=== PATIENT | female | born 1970 ===

== ENCOUNTER 2018-12-10 15:05 | Outpatient (CLI) | payer BC ==
--- NOTE | 2018-12-10 16:28 | Mammography Report ---
BILATERAL DIGITAL SCREENING MAMMOGRAMS WITH CAD INDICATION: Screening. COMPARISONS: None available. However, she indicated that she had had a previous mammogram at [place]. FINDINGS: Craniocaudal and mediolateral oblique views of both breasts were obtained using 2-D digital acquisition.In addition to standard review, the examination was analyzed for possible abnormalities using a computer-assisted detection device (iCAD). The breast tissue is heterogeneously dense, which may obscure small masses. A left asymmetry on the MLO view requires comparison with the prior mammogram. The right breast is ne gative. IMPRESSION: Comparison with the previous mammogram is required. We will attempt to obtain a prior mammogram for c omparison. If we did not obtain a prior mammogram within 30 days, a revised report will be issued rec ommending a recall for additional imaging. Please be advised that the patient should not schedule an appointment for return until adequate time (at least 2 weeks) has passed breast to obtain the prior m ammogram. BI-RADS CATEGORY 0: INCOMPLETE - NEED ADDITIONAL IMAGING EVALUATION AND/OR PRIOR MAMMOGRAMS FOR COMP ARISON Information is entered into a reminder system for a target due date for the next mammogram. The resul ts and recommendations were sent to the patient by mail. Signer Name: Bahman Medel MD Signed: 12/10/2018 4:24 PM Workstation Name: [id number]
== END 2018-12-10 15:06 | disposition home or self-care (01) ==
LOC: SPVWC 15:05
PROVIDERS: ATTEND Family Medicine
DX: Z12.31 Encounter for screening mammogram for malignant neoplasm of breast (principal)
CPT/HCPCS: 77067

== ENCOUNTER 2019-02-05 13:02 | Outpatient (CLI) | payer BC ==
--- NOTE | 2019-02-06 11:08 | Ultrasound Report ---
LEFT DIGITAL DIAGNOSTIC MAMMOGRAM WITHOUT CAD LEFT COMPLETE BREAST ULTRASOUND INDICATION: Recalled for asymmetry. TECHNIQUE: Digital left mammographic imaging was performed. Additional views included lateral medial , rolled CC, exaggerated CC and spot compression MLO views. COMPARISON: 12/10/2018 screening mammogram. FINDINGS: Breast Density: Breast is heterogeneously dense, which may obscure small masses. An irregular asymmetry persists on MLO and spot MLO views and is questionable on the lateral view. Ho wever, other views are negative. Ultrasound Findings: Complete sonographic evlauation of all 4 quadrants and retroareolar region was p erformed. Ultrasound demonstrated normal structures with no mass, cyst or shadowing. IMPRESSION: A probably benign mammographic asymmetry with no ultrasound correlate. BI-RADS Category 3: Probably Benign. Recommend 6 month follow-up left mammogram and ultrasound if needed. A "normal" or negative report should not discourage follow up or biopsy of a clinically significant f inding. A written summary of these findings will be mailed to the patient. The patient will be entered into a mammography reporting system which will generate a reminder letter for the patient's next appointmen t at the appropriate interval. FURTHER INFORMATION: According to the [employer], yearly mammograms are recommend ed starting at age 40 and continuing as long as a woman is in good health. Breast MRI is recommended for women with an approximately 20-25% or greater lifetime risk of breast cancer, including women wi th a strong family history of breast or ovarian cancer and women who have been treated for Hodgkin's disease. Signer Name: Bahman Medel MD Signed: 02/06/2019 11:04 AM Workstation Name: [id number]
== END 2019-02-05 13:03 | disposition home or self-care (01) ==
LOC: SPVWC 13:02
PROVIDERS: ATTEND Family Medicine
DX: R92.8 Other abnormal and inconclusive findings on diagnostic imaging of breast (principal)